=== PATIENT | female | born 1985 | race Caucasian/White ===

== ENCOUNTER 2019-01-14 22:33 | Emergency (ER) | payer OTHER ==
[~2019-01-14] VITALS: Ht 165.1 cm; Wt 72.6 kg
[~2019-01-14 22:33] MED LIST: PRENATAL TABLE1 EAC2; PROVIL200 MG PO
[2019-01-14] MEDS ORDERED: PROTONIX40 MG PO (22:45)
[2019-01-15] MEDS ORDERED: LEVSIN/SL0.125 MG SL (02:25)
[2019-01-15] MEDS ORDERED: PROTONIX40 M1 PO (02:25)
[2019-01-15] MEDS ORDERED: METOCLOPRAMIDE H5 M1 PO (02:27)
== END 2019-01-15 02:36 ==
LOC: ER 22:33
DX: K21.9 Gastro-esophageal reflux disease without esophagitis (principal); R10.2 Pelvic and perineal pain

== ENCOUNTER 2020-10-06 11:49 | Outpatient (CLI) | payer OTHER ==
[~2020-10-06 11:49] MED LIST changes: +LEVSIN/SL0.125 MG SL; +METOCLOPRAMIDE H5 M1 PO; +PROTONIX40 M1 PO; +PROTONIX40 MG PO
== END 2020-10-06 12:45 | disposition home or self-care (01) ==
LOC: NST 11:49
PROVIDERS: ATTEND Obstetrics & Gynecology Maternal & Fetal Medicine
DX: Z34.82 Encounter for supervision of other normal pregnancy, second trimester (principal)

== ENCOUNTER 2020-11-19 15:15 | Inpatient (IN) | payer OTHER ==
[~2020-11-19] VITALS: Ht 165.1 cm; Wt 87.5 kg
[2020-12-01] MEDS ORDERED: PRENATAL TABLE1 EAC1 PO (07:22)
[2020-12-01] MEDS ORDERED: IRON325 MG PO (07:23)
== END 2020-12-03 12:06 | disposition home or self-care (01) | DRG 807 ==
LOC: OB/GYN 12-01 05:20 → LDR 12-01 05:20 → OB/GYN 12-01 11:41
PROVIDERS: ADMIT Obstetrics & Gynecology Maternal & Fetal Medicine; ATTEND Obstetrics & Gynecology Maternal & Fetal Medicine
PROC: 10E0XZZ Delivery of Products of Conception, External Approach (ICD-10-PCS; principal; 2020-12-01)
PROC: 0HQ9XZZ Repair Perineum Skin, External Approach (ICD-10-PCS; 2020-12-01)
PROC: 4A1HXFZ Monitoring of Products of Conception, Cardiac Rhythm, External Approach (ICD-10-PCS; 2020-12-01)
DX: O70.0 First degree perineal laceration during delivery (principal); Z37.0 Single live birth; Z3A.39 39 weeks gestation of pregnancy; Z20.822 Contact with and (suspected) exposure to COVID-19

== ENCOUNTER 2020-11-26 08:54 | Outpatient (CLI) | payer OTHER | END 2020-11-26 10:29 | disposition home or self-care (01) | LOC: NST 08:54 | PROVIDERS: ATTEND Obstetrics & Gynecology Maternal & Fetal Medicine | DX: Z34.83 Encounter for supervision of other normal pregnancy, third trimester (principal) ==

== ENCOUNTER 2020-11-30 08:28 | Outpatient (CLI) | payer OTHER ==
[2020-12-01] MEDS ORDERED: PRENATAL TABLE1 EAC1 PO (07:22)
[2020-12-01] MEDS ORDERED: IRON325 MG PO (07:23)
== END 2020-11-30 09:31 | disposition home or self-care (01) ==
LOC: NST 08:28
PROVIDERS: ATTEND Obstetrics & Gynecology
DX: O09.03 Supervision of pregnancy with history of infertility, third trimester (principal)